=== PATIENT | female | born 1975 | race African-American/Black ===

== ENCOUNTER 2024-01-03 13:13 | Emergency (ER) | payer MEDICARE, MEDICAID ==
[~2024-01-03] VITALS: Ht 160 cm; Wt 130.6 kg
[2024-01-03 13:55] VITALS: BP 155/80; PULSE 90; RESP 16; O2SAT 95
[2024-01-03] MEDS ORDERED: ACET-1080 PO (13:58)
[2024-01-03 14:08] VITALS: TEMP 98.4
[2024-01-03] MEDS: ACETAMINOPHEN 500 MG TAB PO ONE (14:08)
== END 2024-01-03 14:20 | disposition home or self-care (01) ==
LOC: ER 13:13
DX: S83.92XA Sprain of unspecified site of left knee, initial encounter (principal); I10 Essential (primary) hypertension; Z88.6 Allergy status to analgesic agent; W18.09XA Striking against other object with subsequent fall, initial encounter; Y93.89 Activity, other specified; Y92.89 Other specified places as the place of occurrence of the external cause; Y99.8 Other external cause status
CPT/HCPCS: 73562